=== PATIENT | female | born 1945 | race Caucasian/White ===

== ENCOUNTER → 2017-04-22 | Outpatient (CLI) | payer OTHER ==
[~2017-04-22] MED LIST: ASPIRIN325 PO; COLACE100 MG PO; CRESTOR5 MG PO; DIFLUCAN100 MG PO; EFFIENT10 MG PO; GENTEAL MILD TO25 ML OP; LISINOPRIL2.5 MG PO; LOPRESSOR100 M1 PO; LOPRESSOR25 PO; METOPROLOL; NORCO 5-325 TA1 EACH PO; ONDANSETRON HCL4 M2 PO; PENICILLIN VK500 MG PO; PERCOCET 5-3251 EACH PO; PRESSURE VISION; PREVACID15 MG; PRILOSEC 20 MG20 MG PO; PRILOSEC20 MG PO; PRILOSEC40 MG; TESSALON PERLE100 MG PO; TRAMADOL PO; ULTRAM 50MG TAB50 MG PO; ZOFRAN ODT4 MG PO; [UNRECOGNIZED DRUG - OTHER] PO
== END ==
LOC: EDSTATUS 07:20 → CAT 07:20
DX: C83.10 Mantle cell lymphoma, unspecified site (principal); R91.1 Solitary pulmonary nodule; K42.9 Umbilical hernia without obstruction or gangrene; K57.90 Diverticulosis of intestine, part unspecified, without perforation or abscess without bleeding; G89.29 Other chronic pain; M54.5 Low back pain; Z85.3 Personal history of malignant neoplasm of breast

== ENCOUNTER → 2017-09-09 | Outpatient (CLI) | payer OTHER | LOC: CAT 07:47 | DX: C85.98 Non-Hodgkin lymphoma, unspecified, lymph nodes of multiple sites (principal); I70.90 Unspecified atherosclerosis; K57.32 Diverticulitis of large intestine without perforation or abscess without bleeding; R59.9 Enlarged lymph nodes, unspecified ==

== ENCOUNTER 2018-01-31 09:32 | Emergency (ER) | payer OTHER ==
[~2018-01-31] VITALS: Ht 157.5 cm; Wt 90.7 kg
[2018-01-31] MEDS ORDERED: NORCO 5-325 TA1 EACH PO (10:17)
[2018-01-31] MEDS ORDERED: PERCOCET 5-3251 EACH PO (10:27)
[2018-01-31 10:35] VITALS: BP 157/90
[2018-05-12] MEDS ORDERED: TRAMADOL 50 MG50 MG PO (09:54)
[2018-05-16] MEDS ORDERED: DEXAMETHASONE 44 M1 PO (13:01)
[2018-05-16] MEDS ORDERED: HALOPERIDOL 1 MG1 MG PO (13:01)
[2018-05-16] MEDS ORDERED: KEPPRA 500 MG500 M2 PO (13:01)
[2018-05-16] MEDS ORDERED: DEPAKOTE 250MG250 M1 PO (13:01)
== END 2018-01-31 10:36 | disposition home or self-care (01) ==
LOC: ER 09:32
DX: M54.9 Dorsalgia, unspecified (principal); M25.512 Pain in left shoulder; I10 Essential (primary) hypertension; K21.9 Gastro-esophageal reflux disease without esophagitis; I48.91 Unspecified atrial fibrillation; E78.5 Hyperlipidemia, unspecified; M79.7 Fibromyalgia; M19.90 Unspecified osteoarthritis, unspecified site; I25.2 Old myocardial infarction; Z90.12 Acquired absence of left breast and nipple